=== PATIENT | female | born 1965 | race African-American/Black ===

== ENCOUNTER 2017-01-30 14:03 | Emergency (ER) | payer OTHER ==
[~2017-01-30] VITALS: Ht 160 cm; Wt 81.7 kg
--- NOTE | ~2017-01-30 | EKG ---
[address] [place] [address] ELECTROCARDIOGRAM REPORT Name: ADELAIDA QUARLES Room #: [facility] [id number] Admission: 01/30/17 Attend Phys: Discharge: 01/30/17 Date of : 65 Report #: [id number] THIS REPORT FOR: //name// [facility] ED Test Date: 2017-01-30 Test Time: 14:22:41 Pat Name: ADELAIDA QUARLES Department: Room: Gender: F [employer] Superintendent: Michelle Hedrick : 1965 Requested By: Edenilson Meadows Order Number: [id number] MD: Micheal Del Real Measurements Intervals [place] Rate: 73 P: 50 SC: 170 QRS: 31 QRSD: 101 T: 33 QT: 383 QTc: 422 Interpretive Statements Sinus rhythm Compared to ECG 05/06/2009 08:55:25 Sinus tachycardia no longer present Electronically Signed On 01-31-2017 16:39:18 CDT by Micheal Del Real [email or web address] <ELECTRONICALLY SIGNED> By: Micheal Del Real MD 01/31/17 1639 1422 1422 MD SANCHO Perdomo
[2017-01-30 14:31] LABS: ABSOLUTE NEUTROPHILS 1.9 thou/uL (1.4-8.2); EOSINOPHILS 1.9 % (0.0-3.0); HEMATOCRIT 39.8 % (37.0-47.0); HEMOGLOBIN 13.4 gm/dL (12.0-15.0); LYMPHOCYTES 53.8 % (24.0-44.0); MANUAL DIFF NO; MCHC 33.6 g/dL (28.0-37.0); MONOCYTES 6.3 % (1.0-8.0); PLATELET COUNT 252 thou/uL (150-400); RBC 4.33 mil/uL (4.20-5.00); RDW 13.7 % (10.5-14.5); WBC 5.2 thou/uL (4.0-11.0)
[2017-01-30 14:37] LABS: POC CREATININE 0.9 mg/dL (0.6-1.3); POC HEMOGLOBIN 13.9 g/dL (12.0-15.0)
[2017-01-30 14:41] LABS: ANION GAP 4 mmol/L (7-16); BUN 18 mg/dL (7-18); CALCIUM 9.4 mg/dL (8.5-10.1); CHLORIDE 107 mmol/L (98-107); CO2 29 mmol/L (21-32); CREATININE 0.9 mg/dL (0.6-1.0); GLUCOSE 89 mg/dL (74-106); POTASSIUM 4.1 mmol/L (3.5-5.1); SODIUM 140 mmol/L (136-145)
[2017-01-30 14:50] LABS: TROPONIN-I < 0.04 ng/mL (<0.04-0.07)
[2017-01-30] MEDS ORDERED: PREDNISONE 20 M20 MG PO (15:23)
[2017-01-30 15:31] VITALS: BP 167/77
== END 2017-01-30 15:31 | disposition home or self-care (01) ==
LOC: ER 14:03
PROVIDERS: Nurse Practitioner
DX: G51.0 Bell's palsy (principal); F10.99 Alcohol use, unspecified with unspecified alcohol-induced disorder; Z90.710 Acquired absence of both cervix and uterus